=== PATIENT | female | born 1955 | race American Indian/Alaskan Native ===

== ENCOUNTER 2018-08-28 11:23 | Inpatient (IN) | payer MEDICAID, OTHER ==
[~2018-08-28] VITALS: Ht 157.5 cm; Wt 63.5 kg
[2018-08-28] MEDS ORDERED: SODIUM CHLORIDE 0.9% 1,000 ML IV ONE ×2 (11:38→13:01)
[2018-08-28] MEDS ORDERED: FAMOTIDINE 20MG/2ML VIAL IV ONE (12:15)
[2018-08-28] MEDS ORDERED: DICYCLOMINE HCL 10MG CAPSULE PO ONE (12:15)
[2018-08-28 12:22] LABS: CLARITY URINE CLEAR (CLEAR); COLOR URINE YELLOW (YELLOW); KETONES URINE NEGATIVE (NEGATIVE); LEUKOCYTE ESTERASE URINE 1+ (NEGATIVE); NITRITE URINE NEGATIVE (NEGATIVE); OCCULT BLOOD URINE TRACE (NEGATIVE); PROTEIN URINE 1+ (NEGATIVE); UROBILINOGEN URINE 0.2 E.U./dL (0.2-1.0)
[2018-08-28 12:38] LABS: HEMATOCRIT. 43.5 % (36.0-48.0); HEMOGLOBIN. 14.8 g/dL (12.0-16.0); MEAN CORPUSCULAR HEMOGLOBIN 30.5 pg (28.0-32.0); MEAN CORPUSCULAR VOLUME 89.8 fL (81.0-99.0); MEAN PLATELET VOLUME 9.8 fl (7.4-10.4); PLATELET 187 x1000/uL (130-400); RED BLOOD CELL COUNT 4.84 mill/uL (4.2-5.4)
[2018-08-28 12:45] LABS: CHLORIDE 103 mEq/L (98-107)
[2018-08-28 12:54] LABS: PARTIAL THROMBOPLASTIN TIME 24.5 sec (23.4-31.0); PROTHROMBIN TIME 10.2 sec (9.1-11.1)
[2018-08-28] MEDS ORDERED: CEFTRIAXONE 1 G PREMIX 50 ML IV ONE (13:00)
[2018-08-28] MEDS ORDERED: POTASSIUM CHLORIDE 20MEQ TABLET SR PO ONE (13:15)
[2018-08-28] MEDS ORDERED: SODIUM CHLORIDE 0.9% 1000ML BAG (SEPSIS BOLUS) IV ONE (13:15)
[2018-08-28 15:15] LABS: PLATELET ESTIMATE NORMAL
[2018-08-28 22:30] VITALS: BP 127/71
[2018-08-29] VITALS: BP 127/71
[2018-08-29] MEDS ORDERED: LOSA1TAB34 PO (00:29)
[2018-08-29] MEDS ORDERED: GUAIFENESIN 200MG/10ML SUGAR FREE UDC PO PRN (00:30)
[2018-08-29] MEDS ORDERED: MAGNESIUM/ALUMINUM HYDROXIDE/SIMETHICONE 30ML UDC PO PRN (00:30)
[2018-08-29] MEDS ORDERED: HYDRALAZINE 20MG/ML VIAL IV PRN (00:30)
[2018-08-29] MEDS ORDERED: CLONIDINE 0.1MG TABLET PO PRN (00:30)
[2018-08-29] MEDS ORDERED: CEFTRIAXONE 1 G PREMIX 50 ML IV SCH ×2 (00:30→14:00)
[2018-08-29] MEDS ORDERED: DIPHENHYDRAMINE 50MG/ML VIAL IV PRN (00:30)
[2018-08-29] MEDS ORDERED: HYDROCODONE/APAP 7.5/325MG 1 TAB TABLET PO PRN (00:30)
[2018-08-29] MEDS ORDERED: IPRATROPIUM/ALBUTEROL 0.5-3(2.5)MG/3ML NEB INH PRN (00:30)
[2018-08-29] MEDS ORDERED: ONDANSETRON HCL 4MG/2ML INJ IV PRN (00:30)
[2018-08-29] MEDS ORDERED: DOCUSATE SODIUM 100MG CAPSULE PO PRN (00:30)
[2018-08-29] MEDS ORDERED: LORAZEPAM 2MG/ML CPJ IV PRN (00:30)
[2018-08-29] MEDS ORDERED: ACETAMINOPHEN 325MG TABLET PO PRN (00:30)
[2018-08-29] MEDS ORDERED: HYDROMORPHONE HCL/PF 2MG/ML CPJ IV PRN (00:30)
[2018-08-29 04:00] VITALS: BP_SYST 126
[2018-08-29] MEDS: SODIUM CHLORIDE 0.9% INJ 3ML FLUSH IVF SCH ×3 (06:08→21:04)
[2018-08-29 07:22] LABS: CREATINE KINASE 107 IU/L (26-192)
[2018-08-29 07:23] LABS: CREATINE KINASE MB FRACTION 1.7 ng/mL (0.5-3.6)
[2018-08-29 08:00] VITALS: BP 144/76
[2018-08-29] MEDS: ASPIRIN 81MG EC TABLET PO SCH (08:09)
[2018-08-29] MEDS: ENOXAPARIN 40MG/0.4ML SYR SUBCUT SCH (08:11)
[2018-08-29 16:00] VITALS: BP 142/68
[2018-08-29 17:16] LABS: CREATINE KINASE 79 IU/L (26-192)
[2018-08-29 17:17] LABS: CREATINE KINASE MB FRACTION < 1.0 ng/mL (0.5-3.6)
[2018-08-29 20:00] VITALS: BP 137/69
[2018-08-30] VITALS: BP 127/66
[2018-08-30 04:00] VITALS: BP 105/67
[2018-08-30] MEDS: SODIUM CHLORIDE 0.9% INJ 3ML FLUSH IVF SCH (06:55)
[2018-08-30 07:35] LABS: BASOPHILS % 0.7 % (0.0-2.0); EOSINOPHILS % 1.4 % (0.0-5.0); LYMPHOCYTES % 42.6 % (20.0-50.0); MEAN CORPUSCULAR HEMOGLOBIN 30.5 pg (28.0-32.0); MEAN CORPUSCULAR VOLUME 89.2 fL (81.0-99.0); MEAN PLATELET VOLUME 9.4 fl (7.4-10.4); MONOCYTES % 6.5 % (2.0-8.0); NEUTROPHILS % 48.8 % (40.0-76.0); PLATELET 170 x1000/uL (130-400); RED BLOOD CELL COUNT 4.26 mill/uL (4.2-5.4)
[2018-08-30 07:48] LABS: CHLORIDE 113 mEq/L (98-107)
[2018-08-30 08:00] VITALS: BP 137/69
[2018-08-30 08:01] LABS: T4 FREE 1.04 ng/dL (0.76-1.46)
[2018-08-30] MEDS: ENOXAPARIN 40MG/0.4ML SYR SUBCUT SCH (08:11)
[2018-08-30] MEDS: ASPIRIN 81MG EC TABLET PO SCH (08:11)
[2018-08-30 09:07] VITALS: BP 137/69
== END 2018-08-30 10:27 | disposition home or self-care (01) | DRG 52 ==
LOC: ER 11:46 → 8WST 12:52 → EDBEDREQ 12:55 → ENRESERV 20:31
PROVIDERS: ADMIT Internal Medicine; ATTEND Internal Medicine
DX: G93.41 Metabolic encephalopathy (principal); R65.10 Systemic inflammatory response syndrome (SIRS) of non-infectious origin without acute organ dysfunction; E86.0 Dehydration; I10 Essential (primary) hypertension; R55 Syncope and collapse
CPT/HCPCS: 36415; 71045; 74176; 82550; 82553; 83605; 83735; 83880; 84439; 84443; 84484; 93005; 96360; 96361; 99285; J0360; J0696; J1650; J3490; J7030; J7050